=== PATIENT | female | born 1960 | race Caucasian/White ===

== ENCOUNTER → 2017-02-23 | Outpatient (CLI) | payer BC ==
[~2017-02-23] MED LIST: ATOR10TA82 PO; BUPRTAB51 PO; DULO-24 PO; LEVO112T2 PO; LISD40CA PO; MULT-663 PO; PSYL55.43 PO; TRAM-10 PO
== END | disposition home or self-care (01) ==
LOC: C.CPL 09:05
PROVIDERS: ATTEND Orthopaedic Surgery
DX: M75.42 Impingement syndrome of left shoulder (principal)

== ENCOUNTER 2018-05-31 08:22 | Inpatient (IN) ==
--- NOTE | 2018-05-14 15:23 | PAT Medication Instructions ---
Medication Instructions Date of Service May 14, 2018 Home Medications atorvastatin [Lipitor] 20 mg PO QAM bupropion HCl [Wellbutrin XL] 300 mg PO QAM calcium citrate malate-vit D3 1 tab PO QAM duloxetine [Cymbalta] 60 mg PO QAM levothyroxine [Synthroid] 100 mcg PO QAM lisdexamfetamine [Vyvanse] 30 mg PO QAM DO NOT take the morning of surgery calcium citrate malate-vit D3 1 tab PO QAM lisdexamfetamine [Vyvanse] 30 mg PO QAM Take morning of surgery With a small sip of water, OTHERWISE NOTHING TO EAT OR DRINK AFTER MIDNIGHT: atorvastatin [Lipitor] 20 mg PO QAM bupropion HCl [Wellbutrin XL] 300 mg PO QAM duloxetine [Cymbalta] 60 mg PO QAM levothyroxine [Synthroid] 100 mcg PO QAM Other Notes If you have any questions please call us at [phone] or [phone] or [phone] or [phone]
--- NOTE | 2018-05-17 11:35 | Anesthesiology Consultation ---
Date of Service May 17, 2018 Assessment & Plan (1) Encounter for pre-operative examination: Chart Review Chart Review: Acceptable Risk for Surgery and Patient seen in Pre Admission Testing Teaching & Discussion Instructed NPO after midnight before surgery, except medications with 15 cc of water. Medication instructions provided according to the PAT guidelines. History Surgery Operation Date: 05/31/18 10:20 Proposed Procedures p L4-L5 Laminectomy with Coflex - Salvatore Bell, Height/Weight Height: 5 ft 2 in Weight: 84.6 kg Allergies Allergy/AdvReac Type Severity Reaction Status Date / Time No Known Allergies Allergy Unverified 05/12/18 13:16 Medications Home Medications Medication Instructions Recorded Confirmed Last Taken atorvastatin [Lipitor] 20 mg PO QAM 05/12/18 05/12/18 05/12/18 bupropion HCl [Wellbutrin XL] 300 mg PO QAM 05/12/18 05/12/18 05/12/18 calcium citrate malate-vit D3 1 tab PO QAM 05/12/18 05/12/18 05/12/18 duloxetine [Cymbalta] 60 mg PO QAM 05/12/18 05/12/18 05/12/18 levothyroxine [Synthroid] 100 mcg PO QAM 05/12/18 05/12/18 05/12/18 lisdexamfetamine [Vyvanse] 30 mg PO QAM 05/12/18 05/12/18 05/12/18 Past Medical History Medical History ADHD Arthritis Fatty liver History of herniated intervertebral disc LOWER BACK Hyperlipidemia Sleep apnea CPAP Thyroid disease Past Family History Family History Aunt Family history of breast cancer Past Surgical History Surgical History History of arthroscopy of left knee History of arthroscopy of left shoulder History of arthroscopy of right knee History of carpal tunnel release of both wrists History of colonoscopy Past Anesthesia History No Hx of Anesthesia Complications and No Family Hx of Anesthesia Complications History of PONV No Motion Sickness Screening History of Motion Sickness: No Social History Smoking Status: Never smoker Do You Dip or Chew Tobacco: No Hx Alcohol Use: No Hx Substance Use: No substance use type: does not use Exercise / Class Metabolic Activity II 4-5 Yardwork/Stairs/Walk up hill (no CP or SOB with stairs, does daily) Review of Systems Pt denies any recent chest pain, shortness of breath, palpitations, cough, fever or URI. Physical Exam Vital Signs BP: 115/75 P: 82bpm SPO2: 96% RA T: 98.3 F R: 12 ENMT Mouth: + dental restorations (few crowns); no chipped teeth and no loose teeth Thyromental Distance: > or= 3.5 Finger Breadths (3.5) Mallampati Class: II Neck normal visual inspection; neck extension not limited Respiratory normal respiratory effort Auscultation: lungs clear to auscultation bilaterally Cardiovascular Rate/Rhythm: regular rate and regular rhythm Heart Sounds: no murmur Vessels: no carotid bruit Testing Electrocardiogram Date: 05/17/18 Findings: + NSR @ (75) Chest X-Ray Date: 05/17/18 Findings: + NAD Laboratory Results 05/17/18 11:45 05/17/18 11:45 PT 10.0 Seconds (9.0-12.0) 05/17/18 11:45 INR 1.0 (0.9-1.1) 05/17/18 11:45 APTT 28.4 Seconds (21.0-31.0) 05/17/18 11:45
[2018-05-17 12:27] LABS: Basophils # (auto) 0.05 K/uL (0-0.2); Basophils % (auto) 0.9 %; Eosinophils # (auto) 0.17 K/uL (0-0.5); Hemoglobin 12.4 g/dL (12.0-16.0); Immature Granulocytes # (auto) 0.01 K/uL (0.00-0.02); Immature Granulocytes % (auto) 0.2 %; Lymphocytes # (auto) 2.18 K/uL (1.2-3.4); Lymphocytes % (auto) 38.1 %; Mean Corpuscular Hgb Conc 31.8 g/dL (32-36); Mean Corpuscular Volume 78.9 fL (80-100); Mean Platelet Volume 9.9 fL (7.4-10.4); Monocytes # (auto) 0.52 K/uL (0.11-0.59); Monocytes % (auto) 9.1 %; Neutrophils # (auto) 2.79 K/uL (1.4-6.5); Neutrophils % (auto) 48.7 %; Platelet Count 277 K/uL (130-400); RDW Coefficient of Variation 14.9 % (11.5-14.5); RDW Standard Deviation 42.9 fL (36.4-46.3); Red Blood Count 4.94 M/uL (4.2-5.4); White Blood Count 5.72 K/uL (4.8-10.8)
[2018-05-17 12:34] LABS: Partial Thromboplastin Ratio 1.1; Partial Thromboplastin Time 28.4 Seconds (21.0-31.0)
--- NOTE | 2018-05-17 12:34 | XRay Report ---
XR chest Pre-admission PA/Lat HISTORY: 58 years-old Female pat preoperative exam. No acute chest complaints COMPARISON: None available TECHNIQUE: PA and lateral views of the chest FINDINGS: Cardiac mediastinal and hilar silhouettes are within normal limits. No pneumothorax, pleural effusion , focal airspace consolidation or overt pulmonary edema. Bones of the chest appear grossly intact. IMPRESSION: No acute process. The above report was generated using voice recognition software. It may contain grammatical, syntax o r spelling errors. Electronically signed by: Charli Rojas M.D. 05/17/2018 12:33 PM
[2018-05-17 12:35] LABS: BUN Creatinine Ratio 24.2 (10-20); Calcium 9.3 mg/dl (8.5-10.1); Creatinine Clr Calc Pharmacy 79.3 ml/min; Est GFR (African American) 96.3; Est GFR (Non-African American) 83.1; Potassium 4.4 mmol/L (3.5-5.1)
--- NOTE | 2018-05-28 20:13 | History and Physical Report ---
DATE OF ADMISSION: 05/31/2018 CHIEF COMPLAINT: Back and lower extremity difficulty, paresthesias, numbness, and tingling. HISTORY OF PRESENT ILLNESS: Nelida is a pleasant young lady. She has spinal stenosis of lumbar spine, particularly L4-5 with some nerve root irritation. We have offered her surgical intervention. She is having surgery Thursday morning at [facility], L4-5 laminectomy with flat Coflex spacer. PAST MEDICAL HISTORY: Positive for thyroid disease, anxiety, cholesterol, chickenpox. PAST SURGICAL HISTORY: Includes meniscus repair, carpal tunnel and rotator cuff repair. FAMILY HISTORY: Heart disease. SOCIAL HISTORY: She is , 2 children. Rarely drinks alcohol. No tobacco. Little activity. REVIEW OF SYSTEMS: Negative for fevers, sweats, chills. Ear, nose and throat negative. Denies chest pain, palpitations. Denies asthma, wheezing, shortness of breath. Admits to some depression. Admits to joint pain, stiffness, weakness and muscle pain, thyroid disease. MEDICATIONS: Synthroid, Cymbalta, Wellbutrin, Lipitor, oxycodone. PHYSICAL EXAMINATION: GENERAL: She is 5 feet 2 inches, 177 pounds. She is in moderate distress. VITAL SIGNS: Blood pressure 130/80, pulse 80, respiration 16. CARDIAC: Normal S1, S2, no S3. LUNGS: Clear to auscultation. No rales, rhonchi, or wheezing. ABDOMEN: Soft, nontender. EXTREMITIES: Adenopathy, no vascular insult. She has some pain with straight leg raising on the right. Some numbness and tingling. No gait abnormality. Hip examination is normal. Images demonstrate a low grade spondylolisthesis L4-5 and stenosis L4-5 lumbar spine. PLAN: Includes a laminectomy with Coflex at L4-5 lumbar spine.
[~2018-05-31 08:22] MED LIST changes: -ATOR10TA82 PO; -BUPRTAB51 PO; +CEFAZOLIN 2000MG 2,000 MG/15 ML SYR IV SCH; -DULO-24 PO; -LEVO112T2 PO; -LISD40CA PO; +LR 15ML/HR IV SCH; -MULT-663 PO; -PSYL55.43 PO; +SODIUM CHLORIDE 0.9% 1000ML IV SCH; -TRAM-10 PO
[2018-05-31] MEDS ORDERED: MIDAZOLAM HCL 1 MG/ML 2ML VIAL ONE (08:25)
[2018-05-31] MEDS ORDERED: fentaNYL citrate 100 MCG/2 ML VIAL ONE (08:25)
[2018-05-31] MEDS ORDERED: MoRPHine SULFATE 10 MG/ML CARP/VIAL IV PRN (09:31)
[2018-05-31] MEDS ORDERED: ATROPINE SULFATE 0.1 MG/ML 10ML SYR IV PRN (09:31)
[2018-05-31] MEDS ORDERED: ePHEDrine sulfate 50 MG/ML AMP IV PRN (09:31)
[2018-05-31] MEDS ORDERED: fentaNYL citrate 100 MCG/2 ML VIAL IV PRN (09:31)
[2018-05-31] MEDS ORDERED: ONDANSETRON INJ 2 MG/ML 2 ML VIAL IV PRN (09:31)
[2018-05-31] MEDS ORDERED: BUPIVACAINE/EPINEPHRINE 0.5% MPF 1:200,000 30 ML VIAL ONE (10:27)
[2018-05-31] MEDS ORDERED: BACITRACIN INJ 50,000 UNIT VIAL ONE (10:28)
[2018-05-31] MEDS ORDERED: VANCOMYCIN HCL 1000MG/20ML VIAL ONE (10:49)
[2018-05-31] MEDS ORDERED: GELATIN SPONGE SZ 100 ONE (10:49)
[2018-05-31] MEDS ORDERED: THROMBIN FOR SOLN 20000 UNIT KIT ONE (10:49)
--- NOTE | 2018-05-31 11:01 | History & Physical Bridge Note ---
Date of Service May 31, 2018 History & Physical Bridge Note I have examined the patient, reviewed the History & Physical and in the interval since the performance of the History & Physical I have noted the following changes of clinical significance: no changes noted
[2018-05-31] MEDS ORDERED: HYDROmorphone INJ 2 MG/ML SYR/VIAL ONE (11:25)
[2018-05-31] MEDS ORDERED: NEOSTIGMINE METHYLSULFATE 5 MG/5 ML SYR ONE (11:48)
[2018-05-31] MEDS ORDERED: ONDANSETRON INJ 2 MG/ML 2 ML VIAL ONE (11:48)
[2018-05-31] MEDS ORDERED: PROPOFOL IV EMULSION 10 MG/ML 20 ML VIAL IV ONE (11:48)
[2018-05-31] MEDS ORDERED: GLYCOPYRROLATE 0.2 MG/ML VIAL ONE (11:48)
[2018-05-31] MEDS ORDERED: ePHEDrine sulfate 50 MG/ML SYR ONE (11:48)
[2018-05-31] MEDS ORDERED: LARYING-O-JET KIT (LTA) ONE (11:48)
[2018-05-31] MEDS ORDERED: DEXAMETHASONE SOD INJ 4 MG/ML VIAL ONE (11:48)
[2018-05-31] MEDS ORDERED: ROCURONIUM BROMIDE 10 MG/ML 5 ML VIAL ONE (11:48)
[2018-05-31] MEDS ORDERED: LIDOCAINE HCL 2% 2 ML VIAL/AMP(20MG/ML) INFIL ONE (11:48)
--- NOTE | 2018-05-31 12:39 | Post Operative Brief Note ---
Immediate Post Op Note v1 Date of Surgery May 31, 2018 Pre & Post Diagnosis Operation Date: 05/31/18 10:20 Pre-Op Diagnosis: Spinal Stenosis Post-Op Diagnosis: Spinal Stenosis Procedure Operation Date: 05/31/18 10:20 Actual Procedures p L4-L5 Laminectomy with Coflex(Not Applicable) - Salvatore Bell DO Surgeon Salvatore Bell DO Elderly Caregiver chad Estimated Blood Loss 100 Findings Consistent with Post-Op Diagnosis Drains Hemovac Drain
--- NOTE | 2018-05-31 13:13 | Fluoroscopy Report ---
FL spine 1V any level CLINICAL HISTORY: L4-L5 LAMI WITH COFLEX COMPARISON STUDY: 09/29/2017 FLUOROSCOPY TIME: 6 seconds. NUMBER OF FLUOROSCOPIC IMAGES: 2 FINDINGS: 2 fluoroscopic spot images reveal an interspinous implant at the L4-5 level. IMPRESSION: Interspinous implant at the L4-5 level. Electronically signed by: Jef Gil M.D. 05/31/2018 1:12 PM
--- NOTE | 2018-05-31 13:20 | Anesthesiology Progress Note ---
Date of Service May 31, 2018 Anesthesia Post Procedure Vital Signs Vital Signs: Temp Pulse Pulse Resp BP Pulse Ox 05/31/18 13:15 92 H 12 122/68 97 05/31/18 13:05 94 H 12 128/70 100 05/31/18 12:55 101 H 12 142/75 H 100 05/31/18 12:49 98.2 F 110 H 21 146/78 H 100 05/31/18 08:48 98.2 F 84 18 140/81 98 Pain Intensity Back: Pain Intensity: 0 Notes Mental Status: alert / awake / arousable and participated in evaluation Patient Amnestic to Procedure: Yes Nausea / Vomiting: adequately controlled Pain: adequately controlled Airway Patency, RR, SpO2: stable & adequate BP & HR: stable & adequate Hydration State: stable & adequate Anesthetic Complications: no major complications apparent and Pt Satisfied with anesthetic care
[2018-05-31] MEDS ORDERED: HYDROmorphone INJ 1 MG/ML SYRINGE IV PRN ×2 (13:48)
[2018-05-31] MEDS ORDERED: MAGNESIUM HYDROXIDE SUSP 30 ML UDC PO PRN (13:48)
[2018-05-31] MEDS: ACETAMINOPHEN 1,000 MG/100 ML VIAL IV SCH ×2 (15:13→23:11)
[2018-05-31] MEDS: OXYCODONE HCL IR 5 MG TAB (IMMEDIATE RELEASE) PO PRN ×2 (15:18→19:34)
[2018-05-31] MEDS: SODIUM CHLORIDE 0.9% 1000ML 1,000 ML IV SCH (18:28)
[2018-05-31] MEDS: CEFAZOLIN 2000MG 2,000 MG/15 ML SYR IV SCH (19:36)
[2018-05-31] MEDS: DOCUSATE SODIUM 100 MG CAP PO SCH (21:10)
[2018-06-01] MEDS: CEFAZOLIN 2000MG 2,000 MG/15 ML SYR IV SCH ×2 (02:16→12:12)
[2018-06-01] MEDS: OXYCODONE HCL IR 5 MG TAB (IMMEDIATE RELEASE) PO PRN ×4 (03:26→19:23)
[2018-06-01] MEDS: ACETAMINOPHEN 1,000 MG/100 ML VIAL IV SCH ×3 (06:08→22:30)
[2018-06-01] MEDS: LEVOTHYROXINE SODIUM 100 MCG TABLET PO SCH (06:11)
[2018-06-01] MEDS ORDERED: Nursing to Pharmacy Communication ONE (06:25)
[2018-06-01] MEDS: SODIUM CHLORIDE 0.9% 1000ML 1,000 ML IV SCH (06:49)
--- NOTE | 2018-06-01 08:06 | Operative Report ---
DATE OF OPERATION: 05/31/2018 PREOPERATIVE DIAGNOSIS: Stenosis and mild instability, lumbar spine. POSTOPERATIVE DIAGNOSIS: Same. PROCEDURE: Included, 1. An L4-L5 laminotomy, laminectomy, partial facetectomy. 2. Insertion of Coflex device. SURGEON: Salvatore Bell DO CREATIVE SERVICES PRODUCER: Roberto Hahn PA-C COMPLICATIONS: None. ESTIMATED BLOOD LOSS: 100. DESCRIPTION OF PROCEDURE: The patient was taken to the operating room and general intubated anesthetic provided to the patient, placed prone, prepped and draped sterile. Made a skin incision, fascial incision, and came right down on the L4-L5 interspace, dissecting the soft tissues, protecting the structural integrity. We did decompressions of each nerve root, left and right at L4-L5, foraminotomies, partial facetectomies. I was pleased with the decompression. We then sized up for a Coflex device filling out a size #12, secured and crimped into place. We irrigated, closed in layers with #1 Vicryl suture, 2-0 and 3-0 nylon to skin, sterile dressing applied. The patient returned to PACU stable. No apparent complications. I attest to the content of the Intraoperative Record and any orders documented therein. Any exception s are noted below.
--- NOTE | 2018-06-01 08:21 | Anesthesiology Progress Note ---
Date of Service June 01, 2018 Anesthesia Post Procedure Vital Signs Vital Signs: Temp Pulse Pulse Pulse Resp BP Pulse Ox 06/01/18 07:14 36.5 C 74 16 115/73 95 06/01/18 03:17 36.5 C 81 16 102/63 96 05/31/18 23:11 36.7 C 91 H 16 105/63 95 05/31/18 18:54 36.5 C 68 22 112/74 98 05/31/18 18:30 05/31/18 16:18 36.6 C 85 22 96/63 L 98 05/31/18 15:18 36.8 C 76 20 114/72 98 05/31/18 14:40 83 16 118/69 96 05/31/18 14:13 95 H 18 117/71 99 05/31/18 13:40 05/31/18 13:30 36.4 C L 90 16 120/69 98 05/31/18 13:15 92 H 12 122/68 97 05/31/18 13:05 94 H 12 128/70 100 05/31/18 12:55 101 H 12 142/75 H 100 05/31/18 12:49 36.8 C 110 H 21 146/78 H 100 05/31/18 08:48 36.8 C 84 18 140/81 98 Pulse Ox 06/01/18 07:14 06/01/18 03:17 05/31/18 23:11 05/31/18 18:54 05/31/18 18:30 97 05/31/18 16:18 05/31/18 15:18 05/31/18 14:40 05/31/18 14:13 05/31/18 13:40 99 05/31/18 13:30 05/31/18 13:15 05/31/18 13:05 05/31/18 12:55 05/31/18 12:49 05/31/18 08:48 Pain Intensity Back: Pain Intensity: 0 Medial Head: Pain Intensity: 2 Notes Mental Status: alert / awake / arousable and participated in evaluation Nausea / Vomiting: adequately controlled Pain: adequately controlled Airway Patency, RR, SpO2: stable & adequate BP & HR: stable & adequate Hydration State: stable & adequate Anesthetic Complications: no major complications apparent
[2018-06-01] MEDS: BuPROPion XL 300 MG TABCR PO SCH (08:49)
[2018-06-01] MEDS: ATORVASTATIN 20 MG TAB PO SCH (08:49)
[2018-06-01] MEDS: DOCUSATE SODIUM 100 MG CAP PO SCH ×2 (08:49→20:27)
[2018-06-01] MEDS: DULOXETINE HCL 60 MG CAP PO SCH (08:49)
[2018-06-01] MEDS: CALCIUM 600MG + VIT D 400 IU TAB PO SCH (12:12)
[2018-06-01] MEDS: LORazepam 1 MG TAB PO PRN (22:45)
[2018-06-02] MEDS: OXYCODONE HCL IR 5 MG TAB (IMMEDIATE RELEASE) PO PRN ×4 (00:43→14:06)
[2018-06-02] MEDS ORDERED: BISACODYL 5 MG TABEC PO PRN (06:00)
[2018-06-02] MEDS: LEVOTHYROXINE SODIUM 100 MCG TABLET PO SCH (06:27)
[2018-06-02] MEDS: ACETAMINOPHEN 1,000 MG/100 ML VIAL IV SCH ×2 (06:27→14:02)
[2018-06-02] MEDS: CALCIUM 600MG + VIT D 400 IU TAB PO SCH (07:57)
[2018-06-02] MEDS: DOCUSATE SODIUM 100 MG CAP PO SCH (08:00)
[2018-06-02] MEDS: ATORVASTATIN 20 MG TAB PO SCH (08:00)
[2018-06-02] MEDS: BuPROPion XL 300 MG TABCR PO SCH (08:00)
[2018-06-02] MEDS: DULOXETINE HCL 60 MG CAP PO SCH (08:00)
[2018-06-02] MEDS ORDERED: POLYETHYLENE (MIRALAX) 17 GM PACK PO SCH (09:00)
[2018-06-02] MEDS: LORazepam 1 MG TAB PO PRN (13:28)
--- NOTE | 2018-06-15 22:12 | Discharge Summary ---
She was admitted on the , discharged on . She had an uneventful hospital course. She had no fevers, sweats, or chills. She had no chest pain, shortness of breath. She was discharged home on , in improved and stable condition. Instructions at length given to her, back brace for support, medications for support and a followup appointment.
== END 2018-06-02 15:42 | disposition home or self-care (01) | DRG 518 ==
LOC: ASU 08:22 → 3E 13:04

== ENCOUNTER 2018-06-07 06:07 | Inpatient (IN) ==
[2018-06-07] MEDS ORDERED: ONDANSETRON INJ 2 MG/ML 2 ML VIAL IV STA ×2 (06:31→09:58)
[2018-06-07] MEDS ORDERED: KETOROLAC TROMETHAMINE 15 MG/ML VIAL IV STA (06:31)
--- NOTE | 2018-06-07 06:33 | Emergency Department Note ---
Entered by Clare Au acting as a scribe for Phillip Garcia DO History of Present Illness General Chief complaint: Abdominal Pain Stated complaint: SEVERE ABDOMINAL PAIN Time Seen by Provider: 06/07/18 06:21 History of Present Illness Provider complaint: abdominal pain Onset (ago): day(s) (last night) Location: abdomen Pain Consistency: + constant Maximum Pain Intensity: 9 Associated symptoms: + other (nausea, chills, rectal burning. Denies: chest pain , trouble breathing. ) Treatments prior to arrival: other (epsom salts) The patient is a 58 year old female who presents to the Emergency Room with complaints of constant abdominal pain beginning last night. She notes nausea and chills. The patient states she felt as though she may be constipated, and took epsom salts. She reports she had a small, liquid bowel movement last night and this morning. The patient states her bowel movement this morning had blood in it. She notes her last regular bowel movement was 3 days ago, following a back surgery she had last week. The patient denies chest pain or trouble breathing. She notes rectal burning. The patient is taking [place] and Lorazepam following her surgery. Home Medications Home Medications Medication Instructions Recorded Confirmed Type atorvastatin [Lipitor] 20 mg PO QAM 05/12/18 06/07/18 History bupropion HCl [Wellbutrin XL] 300 mg PO QAM 05/12/18 06/07/18 History calcium citrate malate-vit D3 1 tab PO QAM 05/12/18 06/07/18 History duloxetine [Cymbalta] 60 mg PO QAM 05/12/18 06/07/18 History levothyroxine [Synthroid] 100 mcg PO QAM 05/12/18 06/07/18 History lisdexamfetamine [Vyvanse] 30 mg PO QAM 05/12/18 06/07/18 History hydrocodone-acetaminophen [[place]] 1 tab PO Q6H PRN #40 tab 06/01/18 06/07/18 Rx Allergies Allergy/AdvReac Type Severity Reaction Status Date / Time No Known Allergies Allergy Unverified 06/07/18 06:43 Past Med/Surg History Medical History ADHD (Chronic) History of retinal hemorrhage (Resolved) Degenerative disc disease (Chronic) Hypothyroidism (Chronic) RONALDO (obstructive sleep apnea) (Chronic) Hyperlipidemia (Chronic) Hypercholesterolemia (Chronic) Depression (Chronic) Surgical History History of arthroscopy of left knee (Resolved) History of arthroscopy of right knee (Resolved) History of carpal tunnel surgery (Resolved) History of shoulder surgery (Resolved) Family History Aunt Family history of breast cancer Mother HTN (hypertension) Father Prostate cancer Social History marital status: Current Living Situation: Spouse Other Information That Helps Us Care for You: No Feels Safe at Home: Yes Safety Concerns: Feels Safe At This Time Smoking Status: Never smoker Do You Dip or Chew Tobacco: No Second Hand Exposure: No Tobacco Cessation Education Requested by Patient: No Hx Alcohol Use: No Beliefs That Will Affect Care: None Communication Ability: Effective Review of Systems See HPI for pertinent positives & negatives. and A total of 10 systems reviewed and were otherwise negative Physical Exam Vital Signs Vital Signs - 24 hr 06/07/18 11:50 06/07/18 12:24 06/07/18 15:11 Temperature 37.5 C 37 C Temperature Source Oral Oral Pulse Rate [Left Finger] 97 H 82 82 Pulse Rhythm [Left Finger] Regular Pulse Strength [Left Finger] Normal Respiratory Rate 18 18 16 Respiratory Effort / Characteristics Non-Labored Respiratory Depth Normal Respiratory Pattern Regular Blood Pressure [Left Arm] 110/81 126/83 122/81 Blood Pressure Mean [Left Arm] 90 97 94 Blood Pressure Position [Left Arm] Lying Sitting Pulse Oximetry 97 95 95 Oxygen Delivery Method Room Air Room Air Room Air 06/07/18 23:11 06/08/18 07:44 06/08/18 08:47 Temperature 36.9 C 37.0 C Temperature Source Oral Oral Pulse Rate [Left Finger] 88 87 Pulse Rhythm [Left Finger] Regular Pulse Strength [Left Finger] Normal Respiratory Rate 14 16 Respiratory Effort / Characteristics Non-Labored Non-Labored Spontaneous Respiratory Depth Normal Normal Respiratory Pattern Regular Regular Blood Pressure [Left Arm] 102/66 124/86 Blood Pressure Mean [Left Arm] 78 98 Blood Pressure Position [Left Arm] Lying Sitting Pulse Oximetry 99 98 Oxygen Delivery Method Room Air Room Air Room Air GENERAL: Patient is awake and alert. She is very anxious appearing and appears to be uncomfortable. EYES: The conjunctivae are clear. The pupils are round and reactive. EARS, NOSE, MOUTH AND THROAT: The nose is without any evidence of any deformity. Mucous membranes are moist tongue is midline NECK: The neck is nontender and supple. RESPIRATORY: Normal respiratory effort is noted there is no evidence of wheezing rhonchi or rales CARDIOVASCULAR: Regular rate and rhythm noted there no murmurs rubs or gallops normal S1 normal S2 GASTROINTESTINAL: The abdomen is distended and diffusely tender. There is specific left lower quadrant tenderness to palpation but no guarding or rigidity. BACK: A wound dressing is placed in the midline lumbar spine. It is clean. There is no significant tenderness over this area. MUSCULOSKELETAL/EXTREMITIES: There is no evidence of gross deformity full range of motion is noted in the hips and shoulders SKIN: There is no obvious evidence of any rash. There are no petechiae, pallor or cyanosis noted. NEUROLOGIC: Patient is awake alert and oriented x3. Course 0625: Past medical records reviewed. The patient was evaluated in room B3, and a complete history and physical examination were performed. 0701: I reevaluated and updated the patient. 0823: Upon reevaluation, the patient is resting. 0828: Discussed the case with [facility]. 0941: I reviewed the patient's case with [facility]. She will evaluate the patient for further management. 0956: Upon reevaluation, the patient is resting. I discussed test results. They verbalized agreement with the treatment plan. Consultations Consultation #1: [facility]. Time: 08:28 Consultation #2: Agustina Vidales PA-C [facility] Time: 09:41 Administered Medications Acetaminophen (Tylenol) 1,000 mg PO Q8H PRN PRN Reason: Pain or Fever Stop: 07/07/18 12:14 Last Admin: 06/08/18 07:50 Dose: 1,000 mg Admin: 06/07/18 22:23 Dose: 1,000 mg Admin: 06/07/18 14:16 Dose: 1,000 mg Atorvastatin Calcium (Lipitor) 20 mg PO QAM [facility] Stop: 07/07/18 12:59 Last Admin: 06/08/18 09:05 Dose: 20 mg Admin: 06/07/18 13:25 Dose: 20 mg Bupropion HCl (Wellbutrin-Xl) 300 mg PO QAM [facility] Stop: 07/07/18 12:59 Last Admin: 06/08/18 09:05 Dose: 300 mg Admin: 06/07/18 13:26 Dose: 300 mg Duloxetine HCl (Cymbalta) [facility] [place] Stop: 07/07/18 12:59 Last Admin: 06/08/18 09:05 Dose: 60 mg Admin: 06/07/18 13:26 Dose: 60 mg Levothyroxine Sodium (Synthroid) 100 mcg PO DAILYBB [facility] Stop: 07/08/18 06:29 Last Admin: 06/08/18 05:34 Dose: 100 mcg Miscellaneous (Order Awaiting Action) 1 ea N/A QS [facility] Stop: 07/07/18 15:59 Last Admin: 06/08/18 08:19 Dose: Not Given Admin: 06/07/18 23:18 Dose: Not Given Admin: 06/07/18 16:09 Dose: Not Given Multivitamins/Minerals (Caltrate Plus) 1 tab PO [facility] Stop: 07/08/18 08:59 Last Admin: 06/08/18 09:05 Dose: Not Given Discontinued Medications Sodium Chloride (Nss 1000ml) 1,000 mls @ 999 mls/hr IV .Q1H1M ABI Stop: 06/07/18 07:45 Last Infusion: 06/07/18 08:24 Dose: 0 mls/hr Admin: 06/07/18 07:07 Dose: 999 mls/hr Sodium Chloride (Nss 1000ml) 1,000 mls @ 100 mls/hr IV .Q10H ABI Stop: 06/08/18 08:59 Last Infusion: 06/08/18 08:13 Dose: 0 mls/hr Infusion: 06/08/18 05:01 Dose: 100 mls/hr Admin: 06/07/18 22:06 Dose: 100 mls/hr Infusion: 06/07/18 22:06 Dose: 100 mls/hr Admin: 06/07/18 13:26 Dose: 100 mls/hr Ioversol (Optiray 320 100ml) 93 ml IV ONCE PRN PRN Reason: Interaction Checking Stop: 06/11/18 07:49 Last Admin: 06/07/18 07:50 Dose: 93 ml Ketorolac Tromethamine (Toradol) 15 mg IV NOW STA Stop: 06/07/18 06:32 Last Admin: 06/07/18 07:07 Dose: 15 mg Methylnaltrexone [place] (Relistor) 12 mg SQ Q2D@0900 ABI Stop: 07/07/18 12:59 Last Admin: 06/07/18 13:50 Dose: 12 mg Ondansetron HCl (Zofran) 4 mg IV NOW STA Stop: 06/07/18 06:32 Last Admin: 06/07/18 07:07 Dose: 4 mg Ondansetron HCl (Zofran) 4 mg IV NOW STA Stop: 06/07/18 09:59 Last Admin: 06/07/18 13:05 Dose: Not Given Medical Decision Making Differential Diagnosis Etiologies such as appendicitis, diverticulitis, PUD, biliary pathology, UTI, pancreatitis, obstruction, mesenteric ischemia, aortic pathology, infections, inflammatory bowel disease, renal colic, as well as others were entertained. Medical Records Attestation: I reviewed the patient's medical records. Home Medications Current Medication List: was personally reviewed by me Laboratory Data Attestation: I reviewed the patient's lab results. Result diagrams: 06/08/18 07:14 06/08/18 07:14 Lab Results 06/07/18 06/07/18 06/07/18 Range/Units 06:44 06:50 06:55 WBC 15.07 H (4.8-10.8) K/uL RBC 4.55 (4.2-5.4) M/uL Hgb 11.5 L (12.0-16.0) g/dL Hct 35.4 L (37-47) % MCV 77.8 L (80-100) fL MCH 25.3 (25-34) pg MCHC 32.5 (32-36) g/dL RDW Std Deviation 41.2 (36.4-46.3) fL RDW Coeff of Ke[place] 14.5 (11.5-14.5) % Plt Count 337 (130-400) K/uL MPV 9.2 (7.4-10.4) fL Immature Gran % (Auto) 0.3 % Neut % (Auto) 77.7 % Lymph % (Auto) 10.9 % [place] % (Auto) 7.8 % Eos % (Auto) 3.0 % Baso % (Auto) 0.3 % Immature Gran # (Auto) 0.04 H (0.00-0.02) K/uL Neut # (Auto) 11.72 H (1.4-6.5) K/uL Lymph # (Auto) 1.65 (1.2-3.4) K/uL [place] # (Auto) 1.17 H (0.11-0.59) K/uL Eos # (Auto) 0.45 (0-0.5) K/uL Baso # (Auto) 0.04 (0-0.2) K/uL PT (9.0-12.0) Seconds INR (0.9-1.1) Sodium (136-145) mmol/L Potassium (3.5-5.1) mmol/L Chloride (98-107) mmol/L Carbon Dioxide (21-32) mmol/L Anion Gap (3-11) BUN (7-18) mg/dl Creatinine (0.6-1.2) mg/dl Est Cr Clr Drug Dosing ml/min Est GFR ( Amer) Est GFR (Non-Af Amer) BUN/Creatinine Ratio (10-20) Glucose (70-99) mg/dl Calcium (8.5-10.1) mg/dl Total Bilirubin (0.2-1) mg/dl AST (15-37) U/L ALT (12-78) U/L Alkaline Phosphatase (45-117) U/L Total Protein (6.4-8.2) gm/dl Albumin (3.4-5.0) gm/dl Globulin (2.5-4.0) gm/dl Albumin/Globulin Ratio (0.9-2) Lipase (73-393) U/L HCG, Qual Negative (Negative) Specimen Hemolysis Urine Color Yellow Urine Appearance Clear (Clear) Urine pH 6.0 (4.5-7.5) Ur Specific [place] 1.024 (1.000-1.030) Urine Protein Negative (Negative) Urine Glucose (UA) Negative (Negative) Urine Ketones Negative (Negative) Urine Blood Trace H (Negative) Urine Nitrite Negative (Negative) Urine Bilirubin Negative (Negative) Urine Urobilinogen Negative (Negative) Ur Leukocyte Esterase Negative (Negative) Urine WBC (Auto) 1-5 (0-5) /hpf Urine RBC (Auto) 5-10 H (0-4) /hpf U Hyaline Cast (Auto) 1-5 (0-5) /lpf U Epithel Cells (Auto) 10-20 H (0-5) /lpf Urine Bacteria (Auto) Negative (Negative) Stl C. diff Tox B Gene (Neg) 06/07/18 06/07/18 06/07/18 Range/Units 06:55 06:55 09:35 WBC (4.8-10.8) K/uL RBC (4.2-5.4) M/uL Hgb (12.0-16.0) g/dL Hct (37-47) % MCV (80-100) fL MCH (25-34) pg MCHC (32-36) g/dL RDW Std Deviation (36.4-46.3) fL RDW Coeff of Keagan (11.5-14.5) % Plt Count (130-400) K/uL MPV (7.4-10.4) fL Immature Gran % (Auto) % Neut % (Auto) % Lymph % (Auto) % [place] % (Auto) % Eos % (Auto) % Baso % (Auto) % Immature Gran # (Auto) (0.00-0.02) K/uL Neut # (Auto) (1.4-6.5) K/uL Lymph # (Auto) (1.2-3.4) K/uL [place] # (Auto) (0.11-0.59) K/uL Eos # (Auto) (0-0.5) K/uL Baso # (Auto) (0-0.2) K/uL PT 10.0 (9.0-12.0) Seconds INR 1.0 (0.9-1.1) Sodium 136 (136-145) mmol/L Potassium 4.0 (3.5-5.1) mmol/L Chloride 102 (98-107) mmol/L Carbon Dioxide 25 (21-32) mmol/L Anion Gap 9.0 (3-11) BUN 17 (7-18) mg/dl Creatinine 0.73 (0.6-1.2) mg/dl Est Cr Clr Drug Dosing 80.8 ml/min Est GFR ( Amer) 106.0 Est GFR (Non-Af Amer) 91.4 BUN/Creatinine Ratio 23.3 H (10-20) Glucose 108 H (70-99) mg/dl Calcium 8.8 (8.5-10.1) mg/dl Total Bilirubin 0.5 (0.2-1) mg/dl AST 27 (15-37) U/L ALT 58 (12-78) U/L Alkaline Phosphatase 214 H (45-117) U/L Total Protein 7.7 (6.4-8.2) gm/dl Albumin 3.3 L (3.4-5.0) gm/dl Globulin 4.4 H (2.5-4.0) gm/dl Albumin/Globulin Ratio 0.7 L (0.9-2) Lipase 57 L (73-393) U/L HCG, Qual (Negative) Specimen Hemolysis Urine Color Urine Appearance (Clear) Urine pH (4.5-7.5) Ur Specific [place] (1.000-1.030) Urine Protein (Negative) Urine Glucose (UA) (Negative) Urine Ketones (Negative) Urine Blood (Negative) Urine Nitrite (Negative) Urine Bilirubin (Negative) Urine Urobilinogen (Negative) Ur Leukocyte Esterase (Negative) Urine WBC (Auto) (0-5) /hpf Urine RBC (Auto) (0-4) /hpf U Hyaline Cast (Auto) (0-5) /lpf U Epithel Cells (Auto) (0-5) /lpf Urine Bacteria (Auto) (Negative) Stl C. diff Tox B Gene Neg C.diff Toxin B (Neg) 06/07/18 06/08/18 06/08/18 Range/Units 20:55 07:14 07:14 WBC 12.19 H (4.8-10.8) K/uL RBC 4.11 L (4.2-5.4) M/uL Hgb 10.0 L 10.3 L (12.0-16.0) g/dL Hct 31.5 L 32.3 L (37-47) % MCV 78.6 L (80-100) fL MCH 25.1 (25-34) pg MCHC 31.9 L (32-36) g/dL RDW Std Deviation 42.0 (36.4-46.3) fL RDW Coeff of Ke[place] 14.8 H (11.5-14.5) % Plt Count 301 (130-400) K/uL MPV 9.4 (7.4-10.4) fL Immature Gran % (Auto) % Neut % (Auto) % Lymph % (Auto) % [place] % (Auto) % Eos % (Auto) % Baso % (Auto) % Immature Gran # (Auto) (0.00-0.02) K/uL Neut # (Auto) (1.4-6.5) K/uL Lymph # (Auto) (1.2-3.4) K/uL [place] # (Auto) (0.11-0.59) K/uL Eos # (Auto) (0-0.5) K/uL Baso # (Auto) (0-0.2) K/uL PT (9.0-12.0) Seconds INR (0.9-1.1) Sodium 141 (136-145) mmol/L Potassium 3.9 (3.5-5.1) mmol/L Chloride 109 H (98-107) mmol/L Carbon Dioxide 27 (21-32) mmol/L Anion Gap 6.0 (3-11) BUN 9 D (7-18) mg/dl Creatinine 0.62 (0.6-1.2) mg/dl Est Cr Clr Drug Dosing 95.1 ml/min Est GFR ( Amer) 116.0 Est GFR (Non-Af Amer) 100.1 BUN/Creatinine Ratio 13.8 (10-20) Glucose 98 (70-99) mg/dl Calcium 8.3 L (8.5-10.1) mg/dl Total Bilirubin (0.2-1) mg/dl AST (15-37) U/L ALT (12-78) U/L Alkaline Phosphatase (45-117) U/L Total Protein (6.4-8.2) gm/dl Albumin (3.4-5.0) gm/dl Globulin (2.5-4.0) gm/dl Albumin/Globulin Ratio (0.9-2) Lipase (73-393) U/L HCG, Qual (Negative) Specimen Hemolysis Urine Color Urine Appearance (Clear) Urine pH (4.5-7.5) Ur Specific [place] (1.000-1.030) Urine Protein (Negative) Urine Glucose (UA) (Negative) Urine Ketones (Negative) Urine Blood (Negative) Urine Nitrite (Negative) Urine Bilirubin (Negative) Urine Urobilinogen (Negative) Ur Leukocyte Esterase (Negative) Urine WBC (Auto) (0-5) /hpf Urine RBC (Auto) (0-4) /hpf U Hyaline Cast (Auto) (0-5) /lpf U Epithel Cells (Auto) (0-5) /lpf Urine Bacteria (Auto) (Negative) Stl C. diff Tox B Gene (Neg) Imaging Data Radiologist's Impression: Radiology results as stated below per my review and the radiologist's interpretation: ABDOMEN AND PELVIS CT WITH IV CONTRAST CT DOSE: 615.19 mGy.cm HISTORY: Acute left lower quadrant abdominal pain LLQ pain TECHNIQUE: Multiaxial CT images of the abdomen and pelvis were performed following the use of intravenous contrast. A dose lowering technique was utilized adhering to the principles of ALARA. COMPARISON STUDY: KUB of same day FINDINGS: The lung bases are generally clear. No pneumatosis or pneumoperitoneum. Imaged inferior cardiac chambers appear unremarkable. The gallbladder, spleen, pancreas and liver appear unremarkable. Patency of the hepatic and portal veins. No intrahepatic biliary ductal dilation. 7 mm hypodense lesion of the superior pole right kidney is too small to characterize , however suggestive of a renal cyst. 6 mm nonobstructing calculus of the inferior pole left kidney. No ureteral calculi or obstructive uropathy. Multiple phleboliths noted about the pelvis. The urinary bladder, uterus and adnexa are unremarkable. Aorta and IVC are within normal limits. No adenopathy. Small sliding-type hiatal hernia. There are a few scattered air-fluid levels noted throughout nondilated small bowel. Fluid-filled appendix is nondilated and appears noninflamed. There is circumferential wall thickening with mucosal hyperemia noted extending from the mid descending colon through the rectum with mild adjacent pericolonic inflammation compatible with a nonspecific colitis. A noninflamed diverticulum is seen on image 296 series 3 involving the descending sigmoid junction. No drainable fluid collection or evidence of perforation. Scattered air-fluid levels are also noted throughout the large bowel. Small fat filled periumbilical hernia. Bones appear to be intact. A metallic spacer is noted between the L4-L5 spinous processes. IMPRESSION: 1. Mild circumferential thickening with mucosal hyperemia and inflammatory stranding extends from the mid descending colon through the rectum compatible with a nonspecific proctocolitis. 2. Scattered air-fluid levels throughout the large and small bowel suggest ileus or enteritis with diarrheal illness. 3. No small bowel obstruction or pneumoperitoneum. 4. Nonobstructing left nephrolithiasis. 5. Small sliding-type hiatal hernia. Electronically signed by: Charli Rojas M.D. 06/07/2018 8:13 AM XR chest 1V portable, XR KUB HISTORY: 58 years-old Female LLQ Pain acute atypical chest pain with acute left lower quadrant abdominal pain COMPARISON: Chest radiograph 05/17/2018 TECHNIQUE: PA view of the chest with KUB radiograph FINDINGS: CHEST: The cardiomediastinal and hilar silhouettes are within normal limits. There is no pneumothorax, pleural effusion, focal airspace consolidation or overt pulmonary edema. Bones of the chest appear grossly intact. KUB: The bowel gas pattern is nonobstructive. No pneumatosis or pneumoperitoneum. Renal shadows are partially obscured by bowel gas. 6 mm radiodensity in the region of the inferior pole left kidney suggests nonobstructing calculus. Calcifications of the pelvis suggest probable phleboliths. Postoperative changes noted at the L5-S1 interspace. Mild degenerative changes about the hips , spine and pelvis. No acute fracture. Hypoplastic ribs at T12. IMPRESSION: 1. No acute process of the chest. 2. Nonobstructive bowel gas pattern. 3. Suggestion of left nephrolithiasis. The above report was generated using voice recognition software. It may contain grammatical, syntax or spelling errors. Electronically signed by: Charli Rojas M.D. 06/07/2018 6:53 AM Blood Pressure Blood Pressure Findings: Normal blood pressure Blood Pressure Disposition: did not require urgent referral MDM Narrative The patient is a 58-year-old female who presented to the emergency department for an evaluation of abdominal pain. The patient describes left-sided abdominal pain and constipation. The patient recently had lumbar surgery. This area appears to be healing well and she has no specific pain in this area but she was concerned that she had constipation because of the pain medication she was taking postoperatively. I discussed the patient's laboratory and radiographic studies with her. She was treated with IV fluids. She was also ordered IV pain medication and IV Zofran. On subsequent reevaluation she was somewhat improved. CAT scan of the abdomen and pelvis was obtained and did reveal signs of proctocolitis. The patient has not had this in the past and has some rectal bleeding noted. I discussed her case with the on-call gastroenterology group. They have agreed to evaluate the patient in the emergency department for further management and disposition. After evaluation it was discussed that the patient may benefit from inpatient management for further fluids and pain control. She also may require further workup. I discussed this with the patient and she was agreeable at this time. For this reason I discussed her case with the on-call [facility] hospitalist group. They have agreed to evaluate the patient in the emergency department for further management and disposition. Impression & Plan Acute lower GI bleeding, Abdominal pain, Proctocolitis Discharge Plan Visit Data *Final* Discharge Date/Time: 06/07/18 12:09 Chief Complaint: Abdominal Pain Stated Complaint: SEVERE ABDOMINAL PAIN ED Provider: Phillip Garcia Discharge Problem: Acute lower GI bleeding, Abdominal pain, Proctocolitis Patient Disposition: Admitted As Inpatient Discharge Instructions Interventions: ED Discharge Assessment Last Done: 06/07/18 12:09 The scribe's documentation has been prepared under my direction and personally reviewed by me in its entirety. I confirm that the note above accurately reflects all work, treatment, procedures, and medical decision making performed by me.
[2018-06-07] MEDS ORDERED: SODIUM CHLORIDE 0.9% 1000ML 1,000 ML IV SCH (06:45)
--- NOTE | 2018-06-07 06:55 | XRay Report ---
XR chest 1V portable, XR KUB HISTORY: 58 years-old Female LLQ Pain acute atypical chest pain with acute left lower quadrant abdom inal pain COMPARISON: Chest radiograph 05/17/2018 TECHNIQUE: PA view of the chest with KUB radiograph FINDINGS: CHEST: The cardiomediastinal and hilar silhouettes are within normal limits. There is no pneumothorax, pleur al effusion, focal airspace consolidation or overt pulmonary edema. Bones of the chest appear grossly intact. KUB: The bowel gas pattern is nonobstructive. No pneumatosis or pneumoperitoneum. Renal shadows are parti ally obscured by bowel gas. 6 mm radiodensity in the region of the inferior pole left kidney suggests nonobstructing calculus. Calcifications of the pelvis suggest probable phleboliths. Postoperative ch anges noted at the L5-S1 interspace. Mild degenerative changes about the hips, spine and pelvis. No a cute fracture. Hypoplastic ribs at T12. IMPRESSION: 1. No acute process of the chest. 2. Nonobstructive bowel gas pattern. 3. Suggestion of left nephrolithiasis. The above report was generated using voice recognition software. It may contain grammatical, syntax o r spelling errors. Electronically signed by: Charli Rojas M.D. 06/07/2018 6:53 AM
[2018-06-07 07:12] LABS: Basophils # (auto) 0.04 K/uL (0-0.2); Basophils % (auto) 0.3 %; Eosinophils # (auto) 0.45 K/uL (0-0.5); Hematocrit (blood only) 35.4 % (37-47); Hemoglobin 11.5 g/dL (12.0-16.0); Immature Granulocytes # (auto) 0.04 K/uL (0.00-0.02); Immature Granulocytes % (auto) 0.3 %; Lymphocytes # (auto) 1.65 K/uL (1.2-3.4); Lymphocytes % (auto) 10.9 %; Mean Corpuscular Hgb Conc 32.5 g/dL (32-36); Mean Corpuscular Volume 77.8 fL (80-100); Mean Platelet Volume 9.2 fL (7.4-10.4); Monocytes # (auto) 1.17 K/uL (0.11-0.59); Monocytes % (auto) 7.8 %; Neutrophils # (auto) 11.72 K/uL (1.4-6.5); Neutrophils % (auto) 77.7 %; Platelet Count 337 K/uL (130-400); RDW Coefficient of Variation 14.5 % (11.5-14.5); RDW Standard Deviation 41.2 fL (36.4-46.3); Red Blood Count 4.55 M/uL (4.2-5.4); White Blood Count 15.07 K/uL (4.8-10.8)
[2018-06-07 07:28] LABS: Albumin Level 3.3 gm/dl (3.4-5.0); BUN Creatinine Ratio 23.3 (10-20); Calcium 8.8 mg/dl (8.5-10.1); Creatinine Clr Calc Pharmacy 80.8 ml/min; Est GFR (Non-African American) 91.4
[2018-06-07 07:29] LABS: Appearance Urine Clear (Clear); Bacteria Urine Automated Negative (Negative); Bilirubin Urine Negative (Negative); Color Urine Yellow; Glucose Urine UA Negative (Negative); Ketones Urine Negative (Negative); Leukocyte Esterase Urine Negative (Negative); Nitrite Urine Negative (Negative); Protein Urine Negative (Negative); Specific Gravity Urine 1.024 (1.000-1.030); Urobilinogen Urine Negative (Negative)
[2018-06-07 07:30] LABS: Albumin Globulin Ratio 0.7 (0.9-2); Bilirubin,Total 0.5 mg/dl (0.2-1); Globulin 4.4 gm/dl (2.5-4.0); Total Protein 7.7 gm/dl (6.4-8.2)
[2018-06-07 07:35] LABS: Pregnancy Test, Serum Negative (Negative)
[2018-06-07] MEDS ORDERED: IOVERSOL 100ml IV PRN (07:50)
--- NOTE | 2018-06-07 08:14 | CT Scan Report ---
ABDOMEN AND PELVIS CT WITH IV CONTRAST CT DOSE: 615.19 mGy.cm HISTORY: Acute left lower quadrant abdominal pain LLQ pain TECHNIQUE: Multiaxial CT images of the abdomen and pelvis were performed following the use of intrave nous contrast. A dose lowering technique was utilized adhering to the principles of ALARA. COMPARISON STUDY: KUB of same day FINDINGS: The lung bases are generally clear. No pneumatosis or pneumoperitoneum. Imaged inferior cardiac chamb ers appear unremarkable. The gallbladder, spleen, pancreas and liver appear unremarkable. Patency of the hepatic and portal ve ins. No intrahepatic biliary ductal dilation. 7 mm hypodense lesion of the superior pole right kidney is too small to characterize, however suggestive of a renal cyst. 6 mm nonobstructing calculus of th e inferior pole left kidney. No ureteral calculi or obstructive uropathy. Multiple phleboliths noted about the pelvis. The urinary bladder, uterus and adnexa are unremarkable. Aorta and IVC are within normal limits. No adenopathy. Small sliding-type hiatal hernia. There are a few scattered air-fluid levels noted throughout nondilated small bowel. Fluid-filled appendix is nond ilated and appears noninflamed. There is circumferential wall thickening with mucosal hyperemia noted extending from the mid descending colon through the rectum with mild adjacent pericolonic inflammati on compatible with a nonspecific colitis. A noninflamed diverticulum is seen on image 296 series 3 in volving the descending sigmoid junction. No drainable fluid collection or evidence of perforation. Sc attered air-fluid levels are also noted throughout the large bowel. Small fat filled periumbilical he rnia. Bones appear to be intact. A metallic spacer is noted between the L4-L5 spinous processes. IMPRESSION: 1. Mild circumferential thickening with mucosal hyperemia and inflammatory stranding extends from th e mid descending colon through the rectum compatible with a nonspecific proctocolitis. 2. Scattered air-fluid levels throughout the large and small bowel suggest ileus or enteritis with di arrheal illness. 3. No small bowel obstruction or pneumoperitoneum. 4. Nonobstructing left nephrolithiasis. 5. Small sliding-type hiatal hernia. Electronically signed by: Charli Rojas M.D. 06/07/2018 8:13 AM
[2018-06-07] MEDS ORDERED: MoRPHine SULFATE 4 MG/ML 1 ML CARP\\VIAL IV PRN (09:58)
[2018-06-07] MEDS ORDERED: DICYCLOMINE HCL 10 MG CAP PO PRN (10:32)
--- NOTE | 2018-06-07 10:39 | History & Physical Report ---
Date of Service June 07, 2018 Assessment & Plan (1) Acute lower GI bleeding: (2) Proctocolitis: This is a 58yo F with a PMH of hypothyroidism, depression, HLD and DDD with recent laminectomy who presents with abdominal pain beginning last night and was found to have proctocolitis, ileus. -Afebrile, hemodynamically stable. Nontoxic in appearance. Leukocytosis of 15 K -Ddx: Hemorrhoids, diverticulosis, infectious cause,Infammation and or Ischemia. -Discussed case with GI, who saw patient in ED * Stool culture and C. difficile to rule out infectious etiology * No narcotic pain medication in the setting of ileus. GI to give Relistor for opioid-induced constipation * Repeat KUB in AM * Last colonoscopy 2011 with findings of hemorrhoids, diverticulosis. She is s/ p hemorrhoidectomy. Plan to eventually repeat colonoscopy in 4-6 week's time to maker sure she doesn't have IBD if her infectious workup is negative * Will hold off on abx for now -Clear liquid diet, gentle IV fluids -Monitor H/H. Hgb stable at 11.5 (3) S/P lumbar laminectomy: S/p L4-L5 laminectomy by Dr. Bell on May 31 -Incision site healing well, no signs of infection -Has follow up appointment next week (4) Hypothyroidism: Continue levothyroxine (5) Depression: Stable. Continue Wellbutrin, Cymbalta (6) ADHD: Continue Vyvanse (7) Hyperlipidemia: Continue atorvastatin (8) RONALDO (obstructive sleep apnea): Not currently using CPAP DVT Ppx: SCDs Code status: FULL PCP: Brennon Dispo: Admit to med/surg. Plan to return home once medically stable. Patient seen in collaboration with Dr. Bryan. Please see addendum. History of Present Illness Chief Complaint: abdominal pain Primary Care Provider: Danelle Willett MD This is a 58yo F with a PMH of hypothyroidism, depression, HLD and DDD who presents with abdominal pain beginning last night. Patient recently had an L4- L5 laminectomy on [address] Bell and has been having small bowel movements since procedure. Developed lower abdominal pain last evening after dinner with associated nausea and chills. Thought abdominal pain could be due to constipation from pain medication, so took some Epson salts orally. [place] like she needed to have a bowel movement later that evening and passed a small amount of mucus with bright red blood. Had 4 more similar episodes of this overnight into this morning, and came to ED for further evaluation. In the ED, was found to have leukocytosis of 15 K. Hemoglobin of 11.5. KUB with non-obstructive gas pattern. CT abdomen/pelvis with mild circumferential thickening and inflammatory stranding extending through mid descending colon through rectum compatible with nonspecific proctocolitis. Was seen by GI service in the ED, who recommend clear liquids, stool culture and Relistor for treatment of opioid-induced constipation. Denies fever, chills, lightheadedness , headache, chest pain, shortness of breath, vomiting, dysuria, hematuria or melena. Allergies Allergy/AdvReac Type Severity Reaction Status Date / Time No Known Allergies Allergy Unverified 06/07/18 06:43 Home Medications Home Medications Medication Instructions Recorded Confirmed Type atorvastatin [Lipitor] 20 mg PO QAM 05/12/18 06/07/18 History bupropion HCl [Wellbutrin XL] 300 mg PO QAM 05/12/18 06/07/18 History calcium citrate malate-vit D3 1 tab PO QAM 05/12/18 06/07/18 History duloxetine [Cymbalta] 60 mg PO QAM 05/12/18 06/07/18 History levothyroxine [Synthroid] 100 mcg PO QAM 05/12/18 06/07/18 History lisdexamfetamine [Vyvanse] 30 mg PO QAM 05/12/18 06/07/18 History hydrocodone-acetaminophen [[place]] 1 tab PO Q6H PRN #40 tab 06/01/18 06/07/18 Rx Past Med/Surg History Medical History ADHD (Chronic) History of retinal hemorrhage (Resolved) Degenerative disc disease (Chronic) Hypothyroidism (Chronic) RONALDO (obstructive sleep apnea) (Chronic) Hyperlipidemia (Chronic) Hypercholesterolemia (Chronic) Depression (Chronic) Surgical History History of arthroscopy of left knee (Resolved) History of arthroscopy of right knee (Resolved) History of carpal tunnel surgery (Resolved) History of shoulder surgery (Resolved) Family History Aunt Family history of breast cancer Mother HTN (hypertension) Father Prostate cancer Social History marital status: Current Living Situation: Spouse Other Information That Helps Us Care for You: No Feels Safe at Home: Yes Safety Concerns: Feels Safe At This Time Smoking Status: Never smoker Do You Dip or Chew Tobacco: No Second Hand Exposure: No Tobacco Cessation Education Requested by Patient: No Hx Alcohol Use: No Beliefs That Will Affect Care: None Preferred Language: Persian Communication Ability: Effective 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 Review of Systems Constitutional: + chills; no fever and no weakness Eyes: no worsening vision Ear, Nose, Mouth, Throat: no nasal congestion and no sore throat Respiratory: no cough, no dyspnea and no pain on inspiration Cardiovascular: no chest pain, no radiating jaw, neck or arm pain, no dyspnea on exertion and no palpitations Gastrointestinal: + abdominal pain, + nausea, + constant urge to pass stools and + blood in stools; no vomiting Genitourinary (Female): no dysuria and no hematuria Musculoskeletal: + back pain (minimal surgical site pain ); no joint pain Integumentary: no non-healing lesions, no skin ulcer and no change in skin color Neurologic: no falls, no localized weakness, no paresthesia, no headache(s) and no confusion Psychiatric: no behavioral changes Physical Exam 2 Vital Signs (Past 24 Hours): Last Vital Signs Temp 36.7 C 06/07/18 06:09 Pulse 88 06/07/18 10:32 Resp 18 06/07/18 10:32 BP 119/55 L 06/07/18 10:32 Pulse Ox 98 06/07/18 10:32 Physical Exam: General Appearance: WD/WN, no apparent distress Head: normocephalic, atraumatic Eyes: normal inspection, PERRL, EOMI ENT: hearing grossly normal, pharynx normal (moist mucous membranes) Neck: supple, no JVD, no adenopathy Respiratory/Chest: lungs clear to auscultation. No wheezes, rales or rhonci. No respiratory distress or accessory muscle use Cardiovascular: regular rate, rhythm, no murmur, normal peripheral pulses Abdomen/GI: normal bowel sounds, soft, non-distended, tender to palpation of LLQ, RLQ, no guarding Back: Lumbosacral incision with sutures in place, well healing, no surrounding erythema or drainage Extremities/Musculoskelatal: normal inspection, no calf tenderness, normal capillary refill, no pedal edema Neurologic/Psych: alert, normal mood/affect, oriented x 3 Skin: normal color, warm/dry Results & Data Laboratory Results Short CBC 06/07/18 Range/Units 06:55 WBC 15.07 H (4.8-10.8) K/uL Hgb 11.5 L (12.0-16.0) g/dL Hct 35.4 L (37-47) % Plt Count 337 (130-400) K/uL BMP 06/07/18 06:55 Sodium 136 Potassium 4.0 Chloride 102 Carbon Dioxide 25 BUN 17 Creatinine 0.73 Glucose 108 H Calcium 8.8 Liver Function 06/07/18 Range/Units 06:55 Total Bilirubin 0.5 (0.2-1) mg/dl AST 27 (15-37) U/L ALT 58 (12-78) U/L Alkaline Phosphatase 214 H (45-117) U/L Albumin 3.3 L (3.4-5.0) gm/dl Urine 06/07/18 Range/Units 06:50 Urine Color Yellow Urine Appearance Clear (Clear) Urine pH 6.0 (4.5-7.5) Ur Specific [place] 1.024 (1.000-1.030) Urine Protein Negative (Negative) Urine Glucose (UA) Negative (Negative) Diagnostic Findings CXR/KUB: IMPRESSION: 1. No acute process of the chest. 2. Nonobstructive bowel gas pattern. 3. Suggestion of left nephrolithiasis. CT abd/pelvis: IMPRESSION: 1. Mild circumferential thickening with mucosal hyperemia and inflammatory stranding extends from the mid descending colon through the rectum compatible with a nonspecific proctocolitis. 2. Scattered air-fluid levels throughout the large and small bowel suggest ileus or enteritis with diarrheal illness. 3. No small bowel obstruction or pneumoperitoneum. 4. Nonobstructing left nephrolithiasis. 5. Small sliding-type hiatal hernia. Code Status & VTE Plan Code Status FULL Supervising Physician Co-Signing Physician Notes She is a 58-year-old female with significant past medical history of RONALDO, depression, hypothyroidism, degenerative disc disease and recent history of lumbar laminectomy was admitted with abdominal pain and bloody diarrhea since last evening. The patient was seen and examined in the emergency room Still complains to have abdominal pain mostly lower quadrants Last bowel movement was bloody as well No distention of the abdomen and no nausea and/or vomiting Denies any fevers or chills Denies any other symptoms Denies any recent use of antibiotics On examination No apparent distress at rest Hemodynamically stable Chest-clear to auscultate bilaterally Heart-S1-S2 regular no murmur appreciated Abdomen-soft, no distention, tender mostly lower quadrants, more on left than right. No guarding and/or wheezing Extremities-negative for any edema Admission labs and imaging studies reviewed Has bright red rectal bleed associated with diarrhea, differentials as mentioned above Agree with assessment and plan as outlined above by Agustina bryan
--- NOTE | 2018-06-07 10:55 | Gastrointestinal Consultation ---
Date of Consultation June 07, 2018 Assessment & Plan (1) Proctocolitis: (2) Acute lower GI bleeding: (3) Abdominal pain: Pt is a 58 y/o female w c/o LLQ abd pain and bloody, mucoid rectal DC while attempting to have BM this AM. Stools were a bit loose. She had recent laminectomy 06/02/18 and been on narcotics after the surgery. CT abd/pelvis w/o signs of bowel obstruction or pneumonperitoneum but air fluid levels in small and large bowels suspicious for enteritis or ileus, also signs of proctocolitis. - Check stool cx and Cdiff to r/o infections - Defer antibx for now - Ok for CL diet - KUB tomorrow AM to re-eval ileus - Last colonoscopy 2011 w findings of hemorrhoids, diverticulosis. She is s/p hemorrhoidectomy. Discussed w pt about eventually repeating colonoscopy in 4-6 week's time to maker sure she doesn't have IBD if her infectious workup is negative. Attg add: I interviewed and examined pt, reviewed chart and labs. Pt s/p recent back surgery last week, now with abrupt onset of severe lower abd pain accompanied by scant passage of blood, mucus. Denies NSAIDs; takes narcotics 2- 3 x daily for the past week; no constipation. Labs showed increased WBC, CT shows left sided colitis and scattered AF levels without colonic or SB dilation. At present, she feels better, with improved pain, return of hunger and flatus. On exam, she has only mild tenderness in LLQ. Suspect ischemic colitis. Given her non toxic appearance and spont improvement , would defer abx. Diet may be adv to low res as tolerated. I expect her symptoms to cont to improve. Plan cscopy in 4-8 weeks, o/w no further w/u. Will sign off, please call if needed. History of Present Illness Reason for Consultation: Abd pain, colitis Requesting Physician: Dr. Phillip Garcia Attending Physician: Dr. Abi Loera History of Present Illness Pt is a 58 y/o female w PMHx of dyslipideami, depression, hypothyroidism, recent laminectomy for spinal stenosis who presented to ED w c/o LLQ abd pain x 1-2 days. She denies associated fever, chills. She had been moving bowels and passing flatus since her laminectomy on 06/02/18. However this AM felt it's harder for her to have a BM w some straining and eventually did have luquid like stools w some bloody mucus passage. She denies travels, sick contact, recent antibx or undercooked meats. Noted on her labs that she has leukocytosis WBC 15K, mild anemia H/H 11/35, CMP otherwise unremarkable. KUB w/o signs of bowel obstruction. CT abd/pelvis showed mild circumferential thickening with mucosal hyperemia and inflammatory stranding extends from the mid descending colon through the rectum compatible with a nonspecific proctocolitis. + signs of air fluid levels in large and small bowels suggestive of ileus or enteritis. No obstruction or pneumoperitoneum. + L nephrolithiasis and small sliding hiatal hernia. Allergies Allergy/AdvReac Type Severity Reaction Status Date / Time No Known Allergies Allergy Unverified 06/07/18 06:43 Home Medications Home Medications Medication Instructions Recorded Confirmed Type atorvastatin [Lipitor] 20 mg PO QAM 05/12/18 06/07/18 History bupropion HCl [Wellbutrin XL] 300 mg PO QAM 05/12/18 06/07/18 History calcium citrate malate-vit D3 1 tab PO QAM 05/12/18 06/07/18 History duloxetine [Cymbalta] 60 mg PO QAM 05/12/18 06/07/18 History levothyroxine [Synthroid] 100 mcg PO QAM 05/12/18 06/07/18 History lisdexamfetamine [Vyvanse] 30 mg PO QAM 05/12/18 06/07/18 History hydrocodone-acetaminophen [[place]] 1 tab PO Q6H PRN #40 tab 06/01/18 06/07/18 Rx Patient History Medical History ADHD (Chronic) History of retinal hemorrhage (Resolved) Degenerative disc disease (Chronic) Hypothyroidism (Chronic) RONALDO (obstructive sleep apnea) (Chronic) Hyperlipidemia (Chronic) Hypercholesterolemia (Chronic) Depression (Chronic) Surgical History History of arthroscopy of left knee (Resolved) History of arthroscopy of right knee (Resolved) History of carpal tunnel surgery (Resolved) History of shoulder surgery (Resolved) Family History Aunt Family history of breast cancer Mother HTN (hypertension) Father Prostate cancer Social History marital status: Current Living Situation: Spouse Other Information That Helps Us Care for You: No Feels Safe at Home: Yes Safety Concerns: Feels Safe At This Time Smoking Status: Never smoker Do You Dip or Chew Tobacco: No Second Hand Exposure: No Tobacco Cessation Education Requested by Patient: No Hx Alcohol Use: No Beliefs That Will Affect Care: None Preferred Language: Qatari Communication Ability: Effective [employer] Piping Designer Required: No Review of Systems Constitutional: as per Subjective / HPI Respiratory: no cough and no dyspnea Cardiovascular: no chest pain, no lightheadedness and no edema Gastrointestinal: + abdominal pain, + nausea, + pain with swallowing and + blood in stools; no vomiting Physical Exam 2 Vital Signs (Past 24 Hours): Last Vital Signs Temp 36.7 C 06/07/18 06:09 Pulse 88 06/07/18 10:32 Resp 18 06/07/18 10:32 BP 119/55 L 06/07/18 10:32 Pulse Ox 98 06/07/18 10:32 Constitutional: WD/WN, vitals as above well groomed, cooperative and comfortable Eyes: PERRL, conjunctivae normal, anicteric sclerae ENMT: external ear and nose normal, oropharynx normal Respiratory: normal respiratory effort, lungs clear to auscultation Cardiovascular: RRR, no murmur, no edema Gastrointestinal (Abdomen): Inspection/Auscultation: normal bowel sounds Percussion/Palpation: + abdomen tender (LLQ) and abdomen soft; no guarding Skin: no rashes, warm and dry no jaundice Neurologic: Motor/Sensory: no asterixis Psychiatric: A+Ox3, euthymic affect Lymphatic: no lymphedema Results & Data Laboratory Results Laboratory Results - last 48 hr 06/07/18 06/07/18 06/07/18 06:44 06:50 06:55 WBC 15.07 H RBC 4.55 Hgb 11.5 L Hct 35.4 L MCV 77.8 L MCH 25.3 MCHC 32.5 RDW Std Deviation 41.2 RDW Coeff of [place] 14.5 Plt Count 337 MPV 9.2 Immature Gran % (Auto) 0.3 Neut % (Auto) 77.7 Lymph % (Auto) 10.9 [place] % (Auto) 7.8 Eos % (Auto) 3.0 Baso % (Auto) 0.3 Immature Gran # (Auto) 0.04 H Neut # (Auto) 11.72 H Lymph # (Auto) 1.65 [place] # (Auto) 1.17 H Eos # (Auto) 0.45 Baso # (Auto) 0.04 PT INR Sodium Potassium Chloride Carbon Dioxide Anion Gap BUN Creatinine Est Cr Clr Drug Dosing Est GFR ( Amer) Est GFR (Non-Af Amer) BUN/Creatinine Ratio Glucose Calcium Total Bilirubin AST ALT Alkaline Phosphatase Total Protein Albumin Globulin Albumin/Globulin Ratio Lipase HCG, Qual Negative Urine Color Yellow Urine Appearance Clear Urine pH 6.0 Ur Specific [place] 1.024 Urine Protein Negative Urine Glucose (UA) Negative Urine Ketones Negative Urine Blood Trace H Urine Nitrite Negative Urine Bilirubin Negative Urine Urobilinogen Negative Ur Leukocyte Esterase Negative Urine WBC (Auto) 1-5 Urine RBC (Auto) 5-10 H U Hyaline Cast (Auto) 1-5 U Epithel Cells (Auto) 10-20 H Urine Bacteria (Auto) Negative 06/07/18 06/07/18 06:55 06:55 WBC RBC Hgb Hct MCV MCH MCHC RDW Std Deviation RDW Coeff of [place] Plt Count MPV Immature Gran % (Auto) Neut % (Auto) Lymph % (Auto) [place] % (Auto) Eos % (Auto) Baso % (Auto) Immature Gran # (Auto) Neut # (Auto) Lymph # (Auto) [place] # (Auto) Eos # (Auto) Baso # (Auto) PT 10.0 INR 1.0 Sodium 136 Potassium 4.0 Chloride 102 Carbon Dioxide 25 Anion Gap 9.0 BUN 17 Creatinine 0.73 Est Cr Clr Drug Dosing 80.8 Est GFR ( Amer) 106.0 Est GFR (Non-Af Amer) 91.4 BUN/Creatinine Ratio 23.3 H Glucose 108 H Calcium 8.8 Total Bilirubin 0.5 AST 27 ALT 58 Alkaline Phosphatase 214 H Total Protein 7.7 Albumin 3.3 L Globulin 4.4 H Albumin/Globulin Ratio 0.7 L Lipase 57 L HCG, Qual Urine Color Urine Appearance Urine pH Ur Specific [place] Urine Protein Urine Glucose (UA) Urine Ketones Urine Blood Urine Nitrite Urine Bilirubin Urine Urobilinogen Ur Leukocyte Esterase Urine WBC (Auto) Urine RBC (Auto) U Hyaline Cast (Auto) U Epithel Cells (Auto) Urine Bacteria (Auto) Diagnostic Findings CT abd/pelvis and KUB as noted above. _ (1) Abdominal pain Abdominal location: left lower quadrant Qualified Code(s): R10.32 - Left lower quadrant pain
[2018-06-07] MEDS ORDERED: ONDANSETRON INJ 2 MG/ML 2 ML VIAL IV PRN (12:23)
[2018-06-07] MEDS ORDERED: METHYLNALTREXONE BROMIDE 12 MG/0.6 ML VIAL SQ SCH (13:00)
[2018-06-07] MEDS: ATORVASTATIN 20 MG TAB PO SCH (13:25)
[2018-06-07] MEDS: DULOXETINE HCL 60 MG CAP PO SCH (13:26)
[2018-06-07] MEDS: BuPROPion XL 300 MG TABCR PO SCH (13:26)
[2018-06-07] MEDS: SODIUM CHLORIDE 0.9% 1000ML 1,000 ML IV SCH ×2 (13:26→22:06)
[2018-06-07] MEDS: ACETAMINOPHEN 500 MG TAB PO PRN ×2 (14:16→22:23)
[2018-06-07 21:58] LABS: Hematocrit (blood only) 31.5 % (37-47)
[2018-06-08] MEDS ORDERED: LEVOTHYROXINE SODIUM 100 MCG TABLET PO SCH (06:30)
--- NOTE | 2018-06-08 07:08 | XRay Report ---
KUB HISTORY: Follow-up study in a patient with ileus and left lower quadrant abdominal pain re-eval ileu s COMPARISON: KUB and CT abdomen and pelvis 06/07/2018 FINDINGS: Left nephrolithiasis redemonstrated without ureteral calculi. Bowel gas pattern is nonobstr uctive. Scattered air-filled nondilated loops of small and large bowel are noted throughout the abdom en. Phleboliths of the pelvis. Postoperative changes at L4-L5. IMPRESSION: 1. Nonobstructive bowel gas pattern. 2. Unchanged left nephrolithiasis. Electronically signed by: Charli Rojas M.D. 06/08/2018 7:06 AM
[2018-06-08] MEDS: ACETAMINOPHEN 500 MG TAB PO PRN (07:50)
[2018-06-08 07:59] LABS: Hematocrit (blood only) 32.3 % (37-47); Hemoglobin 10.3 g/dL (12.0-16.0); Mean Corpuscular Hgb Conc 31.9 g/dL (32-36); Mean Corpuscular Volume 78.6 fL (80-100); Mean Platelet Volume 9.4 fL (7.4-10.4); Platelet Count 301 K/uL (130-400); RDW Coefficient of Variation 14.8 % (11.5-14.5); Red Blood Count 4.11 M/uL (4.2-5.4); White Blood Count 12.19 K/uL (4.8-10.8)
[2018-06-08 08:30] LABS: BUN Creatinine Ratio 13.8 (10-20); Calcium 8.3 mg/dl (8.5-10.1); Creatinine Clr Calc Pharmacy 95.1 ml/min; Est GFR (Non-African American) 100.1; Potassium 3.9 mmol/L (3.5-5.1)
[2018-06-08] MEDS ORDERED: CALCIUM 600MG + VIT D 400 IU TAB PO SCH (09:00)
[2018-06-08] MEDS: DULOXETINE HCL 60 MG CAP PO SCH (09:05)
[2018-06-08] MEDS: BuPROPion XL 300 MG TABCR PO SCH (09:05)
[2018-06-08] MEDS: ATORVASTATIN 20 MG TAB PO SCH (09:05)
--- NOTE | 2018-06-08 17:51 | Hospitalist Progress Note ---
Date of Service June 08, 2018 Assessment & Plan (1) Acute lower GI bleeding: Admitted with lower GI bleed. CT abdomen and pelvis per Radiology demonstrated: 1. Mild circumferential thickening with mucosal hyperemia and inflammatory stranding extends from the mid descending colon through the rectum compatible with a nonspecific proctocolitis. 2. Scattered air-fluid levels throughout the large and small bowel suggest ileus or enteritis with diarrheal illness. 3. No small bowel obstruction or pneumoperitoneum. 4. Nonobstructing left nephrolithiasis. 5. Small sliding-type hiatal hernia. GI consulted. [place] most likely that patient had ischemic colitis. Hgb 11.5 --> --> 10.3. No further bleeding. Outpatient colonscopy in 4-8 weeks recommended. (2) S/P lumbar laminectomy: Recent lumbar decompression with Dr. Bell. Doing well postop. (3) DVT prophylaxis: No anticoagulants due to GI bleeding. SCD's ordered. Ambulating. (4) Discharge planning issues: Discharge to home. Internal Medicine follow-up with Dr. Danelle Willett. Subjective Recheck for lower GI bleeding. Feels much better. No abdominal pain, nausea, vomiting, melena, hematochezia. Physical Exam 2 Vital Signs (Past 24 Hours): Last Vital Signs Temp 36.6 C 06/08/18 15:19 Pulse 87 06/08/18 15:19 Resp 16 06/08/18 15:19 BP 124/77 06/08/18 15:19 Pulse Ox 99 06/08/18 15:19 Constitutional: no acute distress Respiratory: no respiratory distress Auscultation: lungs clear to auscultation bilaterally Cardiovascular: Rate/Rhythm: regular rate and regular rhythm Vessels: no JVD Extremities: no calf tenderness and no edema Gastrointestinal (Abdomen): normal bowel sounds, soft, nontender, no hepatosplenomegaly Skin: no rashes, warm and dry Psychiatric: Orientation: alert and oriented x 3 Results & Data Laboratory Results Hgb 10.3 WBC 12,190
--- NOTE | 2018-06-09 19:19 | Discharge Summary ---
Date of Service Date of admission: 06/07/18 Date of discharge: 06/08/18 Admission HPI Per Admitting Provider This is a 58yo F with a PMH of hypothyroidism, depression, HLD and DDD who presents with abdominal pain beginning last night. Patient recently had an L4- L5 laminectomy on [address] Bell and has been having small bowel movements since procedure. Developed lower abdominal pain last evening after dinner with associated nausea and chills. Thought abdominal pain could be due to constipation from pain medication, so took some Epson salts orally. [place] like she needed to have a bowel movement later that evening and passed a small amount of mucus with bright red blood. Had 4 more similar episodes of this overnight into this morning, and came to ED for further evaluation. In the ED, was found to have leukocytosis of 15 K. Hemoglobin of 11.5. KUB with non-obstructive gas pattern. CT abdomen/pelvis with mild circumferential thickening and inflammatory stranding extending through mid descending colon through rectum compatible with nonspecific proctocolitis. Was seen by GI service in the ED, who recommend clear liquids, stool culture and Relistor for treatment of opioid-induced constipation. Denies fever, chills, lightheadedness , headache, chest pain, shortness of breath, vomiting, dysuria, hematuria or melena. Admission Exam Per Admitting Provider General Appearance: WD/WN, no apparent distress Head: normocephalic, atraumatic Eyes: normal inspection, PERRL, EOMI ENT: hearing grossly normal, pharynx normal (moist mucous membranes) Neck: supple, no JVD, no adenopathy Respiratory/Chest: lungs clear to auscultation. No wheezes, rales or rhonci. No respiratory distress or accessory muscle use Cardiovascular: regular rate, rhythm, no murmur, normal peripheral pulses Abdomen/GI: normal bowel sounds, soft, non-distended, tender to palpation of LLQ, RLQ, no guarding Back: Lumbosacral incision with sutures in place, well healing, no surrounding erythema or drainage Extremities/Musculoskelatal: normal inspection, no calf tenderness, normal capillary refill, no pedal edema Neurologic/Psych: alert, normal mood/affect, oriented x 3 Skin: normal color, warm/dry Principal Diagnosis lower GI bleed, suspected ischemic colitis Discharge Data Allergies Allergy/AdvReac Type Severity Reaction Status Date / Time No Known Allergies Allergy Unverified 06/07/18 06:43 Consultations 06/07/18 09:43 ED Decision to Admit Stat 06/07/18 12:23 Consult Gastroenterology Routine Ordered Studies 06/07/18 07:01 CT abd pelvis IV con only Stat Hospital Course (1) Acute lower GI bleeding: Admitted with lower GI bleed. CT abdomen and pelvis per Radiology demonstrated: 1. Mild circumferential thickening with mucosal hyperemia and inflammatory stranding extends from the mid descending colon through the rectum compatible with a nonspecific proctocolitis. 2. Scattered air-fluid levels throughout the large and small bowel suggest ileus or enteritis with diarrheal illness. 3. No small bowel obstruction or pneumoperitoneum. 4. Nonobstructing left nephrolithiasis. 5. Small sliding-type hiatal hernia. GI consulted. [place] most likely that patient had ischemic colitis. Hgb 11.5 --> --> 10.3. No further bleeding. Outpatient colonscopy in 4-8 weeks recommended. (2) S/P lumbar laminectomy: Recent lumbar decompression with Dr. Bell. Doing well postop. (3) DVT prophylaxis: No anticoagulants due to GI bleeding. SCD's ordered. Ambulating. (4) Discharge planning issues: Discharge to home. Internal Medicine follow-up with Dr. Danelle Willett. Total Time Total Time Spent Total Time Spent (In Minutes): 25 Discharge Plan Discharge Items Patient Disposition: Home - Self-Care Reason For Visit: rectal bleeding Discharge Diagnosis: colitis Condition: Good Discharge Goals: Decrease discomfort and Improve disease control Activity: Per 'Additional Instructions' section Activity Comment: As instructed by Dr. Bell. Non-emergency contact: Primary Care Provider and Hospitalist Call non-emergency contact if: you have any medication questions and your symptoms worsen Follow-up/Referrals: Abi Loera [Physician] - (Office will contact you regarding colonoscopy.) Danelle Willett MD [Primary Care Provider] - (Office will contact you with appointment.) Diet: Heart Healthy Diet Comment: low fiber diet for 2 weeks, then high fiber Addtl Provider Instructions: OTHER INSTRUCTIONS: Don't strain to move your bowels. Use docusate sodium (Colace) 100 mg once or twice a day. Colonoscopy recommended in 4-8 weeks. Seek medical attention if you have: * temperature above 101 * chest pain or trouble breathing * abdominal pain, nausea, vomiting * diarrhea, dark stools or bloody stools * any unanswered questions or concerns Call 911 if symptoms are severe. Call if you have any questions or problems. My cell # is [phone]. You can also reach a [facility] hospitalist on duty at [facility] 24 hours a day by calling [phone]. Prescriptions: New docusate sodium [Colace] 100 mg capsule 100 mg PO BID Qty: 60 RF: 0 Continue atorvastatin [Lipitor] 20 mg Tablet 20 mg PO QAM RF: 0 levothyroxine [Synthroid] 100 mcg Tablet 100 mcg PO QAM RF: 0 bupropion HCl [Wellbutrin XL] 300 mg Tablet Extended Release 24 Hr 300 mg PO QAM RF: 0 duloxetine [Cymbalta] 60 mg Capsule,Delayed Release(Dr/Ec) 60 mg PO QAM RF: 0 calcium citrate malate-vit D3 250-100 mg-unit Tablet 1 tab PO QAM RF: 0 lisdexamfetamine [Vyvanse] 30 mg Capsule 30 mg PO QAM RF: 0 hydrocodone-acetaminophen [[place]] 10-325 mg tablet 1 tab PO Q6H PRN (Reason: pain) Qty: 40 RF: 0 Stand-Alone Forms: My [facility] Discharge Orders: Discharge Order (Routine); Ordered 06/08/18 Ordered By: Salvatore James Admission Data Admit Date/Time: 06/07/18 10:35 Attending Provider: Salvatore James Admit Provider: Richard Marquez Primary Care Provider: Danelle Willett Other Providers: Richard Marquez ; Abi Loera Service: Medical Other Interventions: Discharge Summary Assessment (RN) Last Done: 06/08/18 18:06 DC Date/Time DO NOT enter until pt leaves facility: 06/08/18 19:02
== END 2018-06-08 19:02 | disposition home or self-care (01) | DRG 394 ==
LOC: ED 06:07 → 3W 10:35